=== PATIENT | male | born 1995 | race African-American/Black ===

== ENCOUNTER 2017-07-11 18:41 | Emergency (ER) | payer OTHER ==
[~2017-07-11] VITALS: Ht 188 cm; Wt 99.9 kg
[2017-07-11 18:42] VITALS: BP 152/76
[2017-07-11] MEDS ORDERED: SUDA30TA PO (19:15)
[2017-07-11] MEDS ORDERED: FLUTISP (19:15)
[2017-07-11] MEDS ORDERED: FLUT1LOT EX (19:15)
[2017-07-11] MEDS ORDERED: ZYRT10CA PO (21:07)
== END 2017-07-11 21:14 | disposition home or self-care (01) ==
LOC: M ED 18:41
DX: H65.01 Acute serous otitis media, right ear (principal); J30.9 Allergic rhinitis, unspecified; Z72.0 Tobacco use; Z79.899 Other long term (current) drug therapy